=== PATIENT | female | born 1955 | race Caucasian/White ===

== ENCOUNTER 2017-07-30 22:18 | Emergency (ER) | payer OTHER ==
[~2017-07-30] VITALS: Ht 157.5 cm; Wt 95.3 kg
[2017-07-30 23:00] LABS: ABSOLUTE BASOPHIL COUNT 0 /CUMM (0.0-0.2); ABSOLUTE EOSINOPHIL COUNT 0.1 /CUMM (0.0-0.7); ABSOLUTE GRANULOCYTE CT 4.7 /CUMM (1.4-6.5); ABSOLUTE MONOCYTE COUNT 0.7 /CUMM (0.10-0.60); BASOPHIL % 0.2 % (0.0-2.0); EOSINOPHIL % 1.7 % (0-5); GRANULOCYTE % 62.7 % (42.2-75.2); HEMATOCRIT 43.5 % (37-47); MEAN CORPUSCULAR HGB 29.8 PG (27.0-31.0); MEAN CORPUSCULAR VOLUME 87.7 FL (81.0-99.0); MEAN PLATELET VOLUME 8.6 FL (7.4-10.4); PLATELET COUNT 155 /CUMM (130-400); RBC DISTRIBUTION WIDTH 13.8 % (11.5-14.5); RED BLOOD CELL CT 4.96 /CUMM (4.20-5.40); WHITE BLOOD CELL COUNT 7.5 /CUMM (4.8-10.8)
[2017-07-30 23:05] LABS: PT 11.8 SEC (9.4-12.5); PTT 28 SEC (25-37)
--- NOTE | 2017-07-30 23:30 | ED GENERAL ADULT ---
History of Present Illness General Chief Complaint: General Adult Stated Complaint: NECK PAIN X 1WK NOW WITH FACIAL/ARM TINGLING X 1HR Source: patient Exam Limitations: no limitations Vital Signs & Intake/Output Vital Signs & Intake/Output Vital Signs Date Time Temp Pulse Resp B/P B/P Pulse O2 O2 Flow FiO2 Mean Ox Delivery Rate 07/31 0043 98.1 71 16 161/91 95 Room Air 07/30 2223 98.0 91 16 178/108 96 ED Intake and Output 07/31 0000 07/30 1200 Intake Total Output Total Balance Patient 210 lb Weight Weight Reported by Patient Measurement Method Allergies Coded Allergies: codeine (Mild, SHAKING, SWEATING 07/31/17) Reconcile Medications Cyclobenzaprine HCl 10 MG TABLET 1 TAB PO TID PRN muscle spasm Dexlansoprazole (Dexilant) 60 MG CAP.DR.BP 1 CAP PO DAILY GERD (Reported) Ibuprofen 800 MG TABLET 1 TAB PO TID PRN pain Ondansetron (Zofran Odt) 4 MG TAB.RAPDIS 1 TAB SL TID nausea Ranitidine HCl (Zantac) 300 MG TABLET 1 TAB PO QPM PRN GERD (Reported) Triage Note: PT TO ED WITH C/O RIGHT ARM NUMBNESS BEGINNING SATURDAY. STATES [place]KE FROM [place] AND RIGHT ARM WAS COMPLETELY NUMB AND HAD HEADACHE AND FACIAL NUMBNESS. BP 178/108 AT TRIAGE. DENIES HTN HX. FACIAL SYMMETRY NOTED. EQUAL HAND GRASP APPRECIATED. REPORTS MILD SOB. DENIES CP. Triage Nurses Notes Reviewed? yes Onset: Abrupt Duration: day(s): (3), constant, continues in ED, getting worse Timing: single episode today Injury Environment: home Severity: moderate, severe Severity Numbers: 8 No Modifying Factors: none Associated Symptoms: HEADACHE, NUMBNESS LMP (ages 10-50): unknown : No Patient currently breastfeeds: No HPI: 61-year-old female history of GERD, chronic migraines presents for evaluation of headache. Patient states that headache began a few days ago and has been persistent and getting worse. She states the pain is located mostly in the back of her head and her neck. She states it is different from her usual migraines. She also reports associated right hand and right facial numbness that has been present for 2 days. She denies chest pain reports mild shortness of breath she reports associated nausea but no vomiting. She reports that she frequently will get numbness with her migraines. She states that usually she will just go to sleep and her migraine will go away but this one didn't. She usually does not take any medicine. She denies fever, neck stiffness, back pain, trauma or any other associated symptoms. (Brandon Gutierrez) Past History Travel History Traveled to [place] past 21 day No Medical History Any Pertinent Medical History? see below for history Gastrointestinal: GERD Tetanus Vaccine: 10/25/12 Surgical History Surgical History: non-contributory Psychosocial History What is your primary language Ivorian Tobacco Use: Never used Family History Hx Contributory? No (Brandon Gutierrez) Review of Systems Review of Systems Constitutional: Reports: no symptoms. EENTM: Reports: no symptoms. Respiratory: Reports: no symptoms. Cardiovascular: Reports: no symptoms. GI: Reports: nausea. Genitourinary: Reports: no symptoms. Musculoskeletal: Reports: muscle pain, neck pain. Skin: Reports: no symptoms. Neurological/Psychological: Reports: see HPI, headache. Hematologic/Endocrine: Reports: no symptoms. Immunologic/Allergic: Reports: no symptoms. All Other Systems: Reviewed and Negative (Brandon Gutierrez) Physical Exam Physical Exam General Appearance: well developed/nourished, no apparent distress, alert, awake Head: atraumatic, normal appearance Eyes: Bilateral: normal appearance, PERRL, EOMI. Ears, Nose, Throat: normal pharynx, normal ENT inspection, hearing grossly normal Neck: normal inspection, supple, full range of motion, MILD BILATERAL PARASPINAL TENDERNESS NO MIDLINE PAIN IS SUPPOSED DEFORMITIES Respiratory: normal breath sounds, chest non-tender, no respiratory distress, lungs clear Cardiovascular: regular rate/rhythm, normal peripheral pulses Peripheral Pulses: 2+ radial (R), 2+ radial (L) Gastrointestinal: normal bowel sounds, soft, non-tender, no organomegaly Back: normal inspection, normal range of motion, no vertebral tenderness Extremities: normal inspection, normal range of motion, no edema Neurologic/Psych: no motor/sensory deficits, awake, alert, oriented x 3, normal gait, normal mood/affect, commercial construction project manager II-XII nml as tested, CEREBELLAR TESTING INTACT Skin: intact, normal color, warm/dry Core Measures ACS in differential dx? No CVA/TIA Diagnosis: No Sepsis Present: No Sepsis Focused Exam Completed? No (Brandon Gutierrez) Progress Differential Diagnoses I considered the following diagnoses in my evaluation of the patient: [Migraine headache, acute coronary syndrome, subarachnoid hemorrhage, CVA/TIA, carotid dissection, muscle strain, tension headache, cluster headache, meningitis] Plan of Care: Orders Procedure Date/time Status TROPONIN LEVEL 07/30 2244 Complete PARTIAL THROMBOPLASTIN TIME 07/30 2244 Complete PROTHROMBIN TIME 07/30 2244 Complete MAGNESIUM 07/30 2244 Complete COMPREHENSIVE METABOLIC PANEL 07/30 2244 Complete CBC WITHOUT DIFFERENTIAL 07/30 2244 Complete EKG 07/30 2226 Active Laboratory Tests 07/30/170: Anion Gap 11, Estimated GFR > 60, BUN/Creatinine Ratio 17.5, Glucose 110 H, Calcium 9.6, Magnesium 1.9, Total Bilirubin 0.7, AST 38 H, ALT 30, Alkaline Phosphatase 128 H, Troponin I 0.03, Total Protein 7.9, Albumin 4.1, Globulin 3.8, Albumin/Globulin Ratio 1.1, PT 11.8, INR 1.08, APTT 28, CBC w Diff NO MAN DIFF REQ, RBC 4.96, MCV 87.7, MCH 29.8, MCHC 34.0, RDW 13.8, MPV 8.6, Gran % 62.7, Lymphocytes % 26.5, Monocytes % 8.9, Eosinophils % 1.7, Basophils % 0.2, Absolute Granulocytes 4.7, Absolute Lymphocytes 2.0, Absolute Monocytes 0.7 H, Absolute Eosinophils 0.1, Absolute Basophils 0 07/30/172244: Urine Color Cancelled, Urine Clarity Cancelled, Urine pH Cancelled, Ur Specific [place] Cancelled, Urine Protein Cancelled, Urine Ketones Cancelled, Urine Nitrite Cancelled, Urine Bilirubin Cancelled, Urine Urobilinogen Cancelled, Ur Leukocyte Esterase Cancelled, Ur Microscopic Cancelled, Urine Hemoglobin Cancelled, Urine Glucose Cancelled Patient seen and evaluated. She is here with headacHE, right facial numbness and right arm numbness. She also has neck pain and nausea. She has a history of headaches but states this is different the neck pain is different. This headache is also more severe and long lasting. There is no head trauma she is afebrile she is neurologically intact. Labs CT scan EKG ordered patient medicated initially with IV Tylenol and Reglan. Patient reported no improvement after meds IV Toradol and Zofran ordered. Blood work does not show any acute findings. CT head is negative EKG negative. Due to patient's numbness neck and posterior head pain a CTA of the head and neck was ordered. When patient found that she needed to get a new IV for this she declined and opted to wait to see if the medication would help her symptoms. Discussed with patient about potential dangers of undiagnosed vascular problems that include permanent disability or patient understands these risks she still opting to wait. She remains neurologically intact. Patient signout to Dr. Locke pending reevaluation after medication Diagnostic Imaging: Viewed by Me: CT Scan. Discussed w/RAD: CT Scan. Radiology Impression: PATIENT: GALILEO ALFRED PRESENT AGE: 61 PATIENT ACCOUNT NO: [id number] : 59 LOCATION: [facility] ORDERING PHYSICIAN: Brandon OVALLES SERVICE DATE: 07/30/17 EXAM TYPE: CAT - CT HEAD WO IV CONTRAST EXAMINATION: CT HEAD WITHOUT CONTRAST CLINICAL INFORMATION: Headache with right facial numbness COMPARISON: None TECHNIQUE: Contiguous axial imaging was performed from the skull base to vertex without intravenous administration of contrast. DLP: 614.79 mGy-cm FINDINGS: There is no evidence of acute intracranial hemorrhage or territorial infarction. No abnormal mass effect or midline shift is seen. Greene to white matter differentiation is well preserved. No extra-axial fluid collections are identified. The ventricles are normal in size. A chronic appearing hypoattenuating focus in the right basal ganglia may reflect a chronic lacunar infarct or prominent perivascular space. The osseous structures and soft tissues are normal. The mastoid air cells and visualized portions of the paranasal sinuses are well aerated. IMPRESSION: No acute intracranial pathology. DICTATED BY: Kane Horton MD DATE/TIME DICTATED :07/31/1714 SENIOR ADULTS DIRECTOR:MAGDIEL DATE/TIME TRANSCRIBED:07/31/1714 CONFIDENTIAL, DO NOT COPY WITHOUT APPROPRIATE AUTHORIZATION. Initial ED EKG: normal sinus rhythm, BORDERLINE INFERIOR q WAVES Prior EKG: unchanged Hand-Off Endorsed To: Jaydon Locke MD Endorsed Time: 109 Pending: other (RE-EVAL) (Cole OVALLES,Brandon) Departure Departure Disposition: STILL A PATIENT Condition: Stable Clinical Impression Primary Impression: Headache Qualifiers: Headache type: unspecified Headache chronicity pattern: acute headache Intractability: not intractable Qualified Code: R51 - Headache Referrals: Dolores FERRARO,Dori Madsen (PCP/Family) Departure Forms: Customer Survey General Discharge Information Prescriptions: Current Visit Scripts Ibuprofen 1 TAB PO TID PRN pain #30 TAB Ondansetron (Zofran Odt) 1 TAB SL TID #10 TAB Cyclobenzaprine HCl 1 TAB PO TID PRN muscle spasm #30 TAB (Brandon Gutierrez) PA/DERRICK OPERATOR Co-Sign Statement Statement: ED Attending supervision documentation- [X] I saw and evaluated the patient. I have also reviewed all the pertinent lab results and diagnostic results. I agree with the findings and the plan of care as documented in the PA's/DERRICK OPERATOR's documentation. 07/31/17, 1:25AM.... pt feeling better after supportive medications... she declines angiogram... she is otherwise well. Her symptoms are most consistent with migraine... she is safe for discharge, close follow up advised. [] I have reviewed the ED Record and agree with the PA's/DERRICK OPERATOR's documentation. [] Additions or exceptions (if any) to the PAs/DERRICK OPERATOR's note and plan are summarized below: [] (Cornelia FERRARO,Jaydon Ohara) Critical Care Note Critical Care Note Critical Care Time: non-applicable (Brandon Gutierrez)
--- NOTE | 2017-07-31 00:21 | CT SCAN REPORT ---
EXAMINATION: CT HEAD WITHOUT CONTRAST CLINICAL INFORMATION: Headache with right facial numbness COMPARISON: None TECHNIQUE: Contiguous axial imaging was performed from the skull base to vertex without intravenous administration of contrast. DLP: 614.79 mGy-cm FINDINGS: There is no evidence of acute intracranial hemorrhage or territorial infarction. No abnormal mass effect or midline shift is seen. Greene to white matter differentiation is well preserved. No extra-axial fluid collections are identified. The ventricles are normal in size. A chronic appearing hypoattenuating focus in the right basal ganglia may reflect a chronic lacunar infarct or prominent perivascular space. The osseous structures and soft tissues are normal. The mastoid air cells and visualized portions of the paranasal sinuses are well aerated. IMPRESSION: No acute intracranial pathology.
[2017-07-31 00:43] VITALS: BP 161/91
[2017-07-31] MEDS ORDERED: DEXILANT60 M1 PO (00:44)
[2017-07-31] MEDS ORDERED: ZANTAC300 MG PO (00:45)
[2017-07-31] MEDS ORDERED: IBUPROFEN800 M1 PO (01:06)
[2017-07-31] MEDS ORDERED: ZOFRAN ODT4 M1 SL (01:06)
[2017-07-31] MEDS ORDERED: CYCLOBENZAPRINE10 M1 PO (01:06)
== END 2017-07-31 01:23 ==
LOC: ERH 22:18
PROVIDERS: Physician Assistant Medical
DX: R51 Headache (principal); R20.0 Anesthesia of skin; M54.2 Cervicalgia
CPT/HCPCS: 93005; 93010; 96374; 96375; J0131; J1885; J2405; J2765